=== PATIENT | male | born 1970 | race Caucasian/White ===

== ENCOUNTER → 2019-03-29 | Outpatient (CLI) | payer OTHER ==
--- NOTE | 2019-03-29 22:13 | CONS ---
CONSULTATION Consultation note for sleep apnea. This patient is 48 years old. Does not have any primary care physician. He is pretty sure that he has obstructive sleep apnea. In fact, the patient gives all the typical symptoms. He has loud snoring, witnessed apneas, chronic hypersomnia and sleepiness, sleep fragmentation. He sleeps on his back and even while trying to initiate sleep, he feels gasping, wakes up choking sensation. He hears himself snore and his sleeps is quite fragmented and feels very much tired and sleepy during the day. He goes to bed around 9:30, wakes up 4:15 am in the morning. He works in a machine shop. He does not fall asleep while driving his car. Sometimes he has pulled on the side road to get himself refreshed and get a short nap. His weight is essentially the same over the past 1 year. No sleep paralysis. No hallucinations. No cataplexy. PAST MEDICAL HISTORY: Obesity, otherwise negative. 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 DRUG ALLERGIES: Not known. OUTPATIENT MEDICATIONS: None. SOCIAL HISTORY: Drinks six 12 ounce beers a day. He smokes 1 pack of cigarettes a day. No substance abuse. FAMILY HISTORY: Negative for sleep apnea. REVIEW OF SYSTEMS: Fourteen-point review of system was done. No anxiety. No depression. No claustrophobia. No sexual dysfunction. No restlessness in lower extremities. No sleepwalking or sleep talking. No palpitation. No heartburn. No grinding. PHYSICAL EXAMINATION: BP is 165/99, pulse is 88, respirations 16, temperature 98.6, saturation is 96% on room air. Height is 5 feet 11 inches, weight is 271. BMI 37.2, neck size 18.5 inches. General appearance: Calm, comfortable. HEENT: Head is atraumatic, normocephalic. NECK: Supple. No JVD. No goiter or neck masses. Mallampati class IV. LUNGS: Clear to auscultation. HEART: Sounds regular rate and rhythm. Normal S1, S2. No S3. No murmurs. ABDOMEN: Soft, nontender. No organomegaly. EXTREMITIES: No edema. No cyanosis or clubbing. NEUROLOGIC: Alert and oriented x3. No focal neurological deficits. PSYCHIATRIC: Negative for anxiety or depression. IMPRESSION: 1. Hypersomnia with high suspicion of obstructive sleep apnea. AHI is 14. 2. Loud snoring. 3. Witnessed apneas. 4. Smoking. 5. Beer drinking. PLAN: High likelihood that the patient has obstructive sleep apnea. We will proceed with a sleep study. Ideally a PSG will be needed although an HSG may also give us information that we need knowing that the patient has a high likelihood for underlying obstructive sleep apnea syndrome. Driving precautions was given. The patient will be asked not to drive especially with the feeling drowsy or sleepy. Cut down the alcohol drinking. Encourage weight loss. We will continue to follow and make further recommendations based on his overall progress. [id number] / IJN: [id number] /
== END | disposition home or self-care (01) ==
LOC: SLEEP 15:15
PROVIDERS: ATTEND Internal Medicine Critical Care Medicine
DX: G47.10 Hypersomnia, unspecified (principal); R06.83 Snoring; R06.81 Apnea, not elsewhere classified; F17.210 Nicotine dependence, cigarettes, uncomplicated; F10.10 Alcohol abuse, uncomplicated
CPT/HCPCS: 99201